=== PATIENT | male | born 1945 | race Caucasian/White ===

== ENCOUNTER → 2025-01-17 | Outpatient (CLI) | payer MEDICARE, BC, SELFPAY ==
[2025-01-17 11:57] LABS: Glucose Estimated Average 114 mg/dL (80-131); Hemoglobin A1C 5.6 % Hgb (4.8-6.0)
[2025-01-17 11:59] LABS: Basophils % (Auto) 0 % (0-2.5); Eosinophils # (Auto) 0.3 Thou/mm3 (0.0-0.5); Eosinophils % (Auto) 4 % (0-10); Hematocrit 42.9 % (41.0-53.0); Hemoglobin 14.3 g/dL (13.5-16.0); Immature Granulocytes % (Auto) 1 % (0-0); Lymphocytes % (Auto) 24 % (10-50); Mean Corpuscular HGB Conc 33.3 g/dl (31.0-37.0); Mean Corpuscular Hemoglobin 29.7 pg (25.0-35.0); Mean Corpuscular Volume 89 fL (80-100); Monocytes # (Auto) 0.8 Thou/mm3 (0.0-0.8); Monocytes % (Auto) 9 % (0-12); Neutrophils # (Auto) 5.2 Thou/mm3 (1.8-7.7); Neutrophils % (Auto) 62 % (37-80); Nucleated Red Blood Cell % 0 /100 WBC (0); Platelet Count 245 Thou/mm3 (140-440); RDW Standard Deviation 44.6 fL (35.1-43.9); Red Blood Count 4.82 Miln/mm3 (4.50-5.90); White Blood Count 8.5 Thou/mm3 (3.8-10.6)
[2025-01-17 12:02] LABS: Alanine Aminotransferase 20 U/L (10-49); Albumin, Serum 3.9 gm/dL (3.4-4.8); Alkaline Phosphatase 77 U/L (46-116); Anion Gap 6 (7-16); Aspartate Amino Transferase 19 U/L (0-34); BUN/Creatinine Ratio 13 Ratio (12-20); Bilirubin,Direct 0.2 mg/dL (0.0-0.3); Bilirubin,Total 0.8 mg/dL (0.3-1.2); Blood Urea Nitrogen 13 mg/dL (9-23); Calcium 9.2 mg/dL (8.3-10.6); Carbon Dioxide 30.8 mMol/L (20.0-31.0); Cardiac Risk Estimate 4.3 RATIO (4.0-6.7); Chloride 106 mMol/L (98-107); Cholesterol 155 mg/dL (132-200); Glucose 100 mg/dL (74-106); HDL Cholesterol 36 mg/dL (40-60); LDL Cholesterol,Calculated 85 mg/dL (0-130); Osmolality,Calculated 285 (275-295); Phosphorous 3.1 mg/dL (2.4-5.1); Potassium 4.5 mMol/L (3.4-5.1); Sodium 143 mMol/L (136-145); Total Protein 6.4 gm/dL (5.7-8.2); Triglycerides 172 mg/dL (30-150); eGFR > 60 See Note
== END | disposition home or self-care (01) ==
PROVIDERS: PCP Specialist; Referring Provider Specialist; Visit Provider Specialist
DX: I11.9 Hypertensive heart disease without heart failure (principal); E11.9 Type 2 diabetes mellitus without complications; E78.00 Pure hypercholesterolemia, unspecified
CPT/HCPCS: 36415; 80048; 80061; 80076; 83036; 84100; 85025

== ENCOUNTER → 2025-06-21 | Outpatient (CLI) | payer MEDICARE, BC, SELFPAY ==
--- NOTE | 2025-06-21 14:19 | XR_ITS ---
Examination: Right wrist 2 views Technique one AP lateral right wrist 2 views INDICATIONS: Patient fell downstairs 2 weeks ago with injury to the wrist, wrist pain. FINDINGS: Moderate osteoarthritis No fracture No wrist dislocation IMPRESSION: Negative for fracture
--- NOTE | 2025-06-21 14:19 | XR_ITS ---
Examination: Hand, right 3 views Technique: Hand AP, oblique, lateral 3 views Date and time of exam: June 21, 2025 1430 hours INDICATIONS: Patient fell downstairs 2 weeks ago with injury to the hand, hand pain FINDINGS: Moderate osteoarthritis No acute fracture No foreign body IMPRESSION: No acute fracture
--- NOTE | 2025-06-21 14:19 | XR_ITS ---
Indication: Lumbar spine 3 views Technique one AP lateral coned lateral lower lumbar spine 3 views Date and time: June 21, 2025 1430 hours INDICATIONS: Low back pain beginning 2 weeks ago. FINDINGS: Adequate alignment lumbar vertebral bodies on the lateral view Severe lumbar spondylosis. 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
--- NOTE | 2025-06-21 14:19 | XR_ITS ---
Examination: Knee, left , 3 views Technique: Knee AP, lateral, oblique 3 views Date and time of exam: June 21, 2025 1430 hours INDICATIONS: Patient fell downstairs 2 weeks ago with injury to the knee, knee pain. FINDINGS: No fracture or dislocation. Small knee effusion Moderate narrowing medial and patellofemoral joint space IMPRESSION: No fracture or dislocation
== END | disposition home or self-care (01) ==
LOC: CDIM 14:07
DX: S89.92XA Unspecified injury of left lower leg, initial encounter (principal); S69.91XA Unspecified injury of right wrist, hand and finger(s), initial encounter; W19.XXXA Unspecified fall, initial encounter; M51.360 Other intervertebral disc degeneration, lumbar region with discogenic back pain only; M51.370 Other intervertebral disc degeneration, lumbosacral region with discogenic back pain only
CPT/HCPCS: 72100; 73100; 73130; 73562

== ENCOUNTER → 2025-06-28 | Outpatient (CLI) | payer MEDICARE, BC, SELFPAY ==
[2025-06-28 10:21] LABS: Glucose Estimated Average 114 mg/dL (80-131); Hemoglobin A1C 5.6 % Hgb (4.8-6.0)
[2025-06-28 10:37] LABS: Alanine Aminotransferase 27 U/L (10-49); Albumin, Serum 4.1 gm/dL (3.4-4.8); Albumin/Globulin Ratio 1.6 (1.2-2.2); Anion Gap 12 (7-16); Aspartate Amino Transferase 27 U/L (0-34); BUN/Creatinine Ratio 21 Ratio (12-20); Bilirubin,Total 0.8 mg/dL (0.3-1.2); Blood Urea Nitrogen 19 mg/dL (9-23); Calcium 9.4 mg/dL (8.3-10.6); Calcium (Corrected) 9.4 mg/dL (8.5-10.1); Carbon Dioxide 28.1 mMol/L (20.0-31.0); Chloride 104 mMol/L (98-107); Cholesterol 105 mg/dL (132-200); Creatinine (Component) 0.9 mg/dL (0.6-1.3); Globulin 2.6 gm/dL (2.3-3.5); Glucose 91 mg/dL (74-106); HDL Cholesterol 39 mg/dL (40-60); LDL Cholesterol,Calculated 40 mg/dL (0-130); Osmolality,Calculated 289 (275-295); Potassium 4.2 mMol/L (3.4-5.1); Sodium 144 mMol/L (136-145); Total Protein 6.7 gm/dL (5.7-8.2); Triglycerides 132 mg/dL (30-150); eGFR > 60 See Note
[2025-06-28 10:38] LABS: Alkaline Phosphatase 82 U/L (46-116); Cardiac Risk Estimate 2.7 RATIO (4.0-6.7); Free T4 (Free Thyroxine) 0.99 ng/dL (0.89-1.76); Thyroid Stimulating Hormone 4.13 uIU/mL (0.55-4.78)
[2025-07-01 07:20] LABS: Direct LDL* 54 mg/dL (<100)
== END | disposition home or self-care (01) ==
LOC: COPL 09:01
PROVIDERS: PCP Family Medicine; Referring Provider Family Medicine; Visit Provider Family Medicine
DX: E03.9 Hypothyroidism, unspecified (principal); E78.5 Hyperlipidemia, unspecified; R73.09 Other abnormal glucose
CPT/HCPCS: 36415; 80053; 80061; 83036; 83721; 84439; 84443